=== PATIENT | female | born 1990 | race Caucasian/White ===

== ENCOUNTER 2016-12-17 06:55 | Day surgery (SDC) | payer OTHER ==
--- NOTE | 2016-12-16 16:40 | HISTORY AND PHYSICAL ---
ADMITTED: 12/17/2016 HISTORY OF PRESENT ILLNESS: The patient is a 26-year-old female with a chief complaint of painful bilateral feet. However, she states that her right foot is more symptomatic now. 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 States she has tried conservative care; it has not helped alleviate any of her pain. MEDICAL/SURGICAL HISTORY: Past medical history includes a history of anxiety and depression. Surgical history: Appendectomy, knee, gallbladder and wisdom teeth extraction. MEDICATIONS: 1. Ibuprofen as needed. ALLERGIES: 1. REPORTS AN ALLERGY TO ADDERALL. 2. CRAB. 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 Smokes a half pack per day, drinks socially. No illicit drugs. FAMILY HISTORY: Diabetes, heart disease, hypertension, arthritis. REVIEW OF SYSTEMS: A 10-point review of systems noncontributory to chief complaint. PHYSICAL EXAMINATION: GENERAL: The patient is alert and oriented x3. HEAD AND NECK: PERRLA. Normocephalic. HEART: Regular rate and rhythm. Regular S1, S2. No murmurs, gallops, or rales. LUNGS: Respirations clear to auscultation. No wheezes or rhonchi. ABDOMEN: Soft, tender, nondistended. No palpable masses. LOWER EXTREMITIES: Vascular: DP and PT pulses are palpable. Skin texture and turgor within normal limits. Subpapillary venous plexus within normal limits. NEUROLOGIC: Deep tendon reflexes and epicritic sensations are intact. Orthopedically, there is noted collapse of the medial column, valgus heel bilaterally. There is noted medial eminence of the first MTP on the right as well as a prominent lateral eminence of the right fifth MTP. Crepitus within the first and fifth MTP. There is noted contracture of the fifth digit in the frontal and sagittal planes. LAB/IMAGING: Imaging revealed significant increased intermetatarsal angle between the first and second metatarsal, right, as well as sesamoid deviation, as well as a lateral projection of the fifth metatarsal head, right. Noted contracture of the proximal and distal interphalangeal joints of the fifth digit, right. IMPRESSION: 1. Hallux abductovalgus deformity 2. Tailor bunion or bunionette of the right fifth metatarsophalangeal joint 3. Hammertoe deformity, fifth digit PLAN: The patient is scheduled for a distal metatarsal osteotomy with rigid internal fixation of the first and fifth metatarsals, as well as an arthroplasty of the fifth digit. She is aware of the convalescent period. Also of the delayed healing associated with smoking discussed. There are no contraindications to surgery at this time. Surgery is scheduled for 12/17/2016.
--- NOTE | 2016-12-16 16:40 | HISTORY AND PHYSICAL ---
ADMITTED: 12/17/2016 HISTORY OF PRESENT ILLNESS: The patient is a 26-year-old female with a chief complaint of painful bilateral feet. However, she states that her right foot is more symptomatic now. 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 States she has tried conservative care; it has not helped alleviate any of her pain. MEDICAL/SURGICAL HISTORY: Past medical history includes a history of anxiety and depression. Surgical history: Appendectomy, knee, gallbladder and wisdom teeth extraction. MEDICATIONS: 1. Ibuprofen as needed. ALLERGIES: 1. REPORTS AN ALLERGY TO ADDERALL. 2. CRAB. 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 Smokes a half pack per day, drinks socially. No illicit drugs. FAMILY HISTORY: Diabetes, heart disease, hypertension, arthritis. REVIEW OF SYSTEMS: A 10-point review of systems noncontributory to chief complaint. PHYSICAL EXAMINATION: GENERAL: The patient is alert and oriented x3. HEAD AND NECK: PERRLA. Normocephalic. HEART: Regular rate and rhythm. Regular S1, S2. No murmurs, gallops, or rales. LUNGS: Respirations clear to auscultation. No wheezes or rhonchi. ABDOMEN: Soft, tender, nondistended. No palpable masses. LOWER EXTREMITIES: Vascular: DP and PT pulses are palpable. Skin texture and turgor within normal limits. Subpapillary venous plexus within normal limits. NEUROLOGIC: Deep tendon reflexes and epicritic sensations are intact. Orthopedically, there is noted collapse of the medial column, valgus heel bilaterally. There is noted medial eminence of the first MTP on the right as well as a prominent lateral eminence of the right fifth MTP. Crepitus within the first and fifth MTP. There is noted contracture of the fifth digit in the frontal and sagittal planes. LAB/IMAGING: Imaging revealed significant increased intermetatarsal angle between the first and second metatarsal, right, as well as sesamoid deviation, as well as a lateral projection of the fifth metatarsal head, right. Noted contracture of the proximal and distal interphalangeal joints of the fifth digit, right. IMPRESSION: 1. Hallux abductovalgus deformity 2. Tailor bunion or bunionette of the right fifth metatarsophalangeal joint 3. Hammertoe deformity, fifth digit PLAN: The patient is scheduled for a distal metatarsal osteotomy with rigid internal fixation of the first and fifth metatarsals, as well as an arthroplasty of the fifth digit. She is aware of the convalescent period. Also of the delayed healing associated with smoking discussed. There are no contraindications to surgery at this time. Surgery is scheduled for 12/17/2016.
[~2016-12-17] VITALS: Ht 170.2 cm; Wt 105.1 kg
[~2016-12-17 06:55] MED LIST: IBUPROFEN600 MG PO; METHOCARBAMOL500 MG PO
[2016-12-17] MEDS ORDERED: ZOFRAN4 MG PO (12:09)
[2016-12-17] MEDS ORDERED: PERCOCET1 TA4 PO (12:09)
--- NOTE | 2016-12-17 12:10 | Provider's Discharge Care Plan ---
Problem, Goal, Plan Problem List 1. Acquired hammer toe of right foot Goals: Improve function Instructions: Follow up as directed
--- NOTE | 2016-12-17 12:10 | Provider's Discharge Care Plan ---
Problem, Goal, Plan Problem List 1. Acquired hammer toe of right foot Goals: Improve function Instructions: Follow up as directed
--- NOTE | 2016-12-17 13:09 | DIAGNOSTIC IMAGING REPORT ---
PROCEDURE: XR FOOT 3 VIEWS - RIGHT INDICATION: POST-OP- IN PACU TECHNIQUE: Three views. COMPARISON: None. FINDINGS: Bunionectomy and corrective osteotomy of the distal first metatarsal fixated with two screws. Corrective osteotomy of the distal fifth metatarsal fixated with a solitary screw. Resection of the distal aspect of the right fifth proximal phalanx. There is normal alignment of the rays. There is mild soft tissue swelling over the dorsum of the foot. IMPRESSION: 1. Bunionectomy with corrective osteotomies of the first and fifth metatarsals 2. Resection of the distal aspect of the fifth proximal phalanx
[2016-12-17] MEDS ORDERED: NORCO1 TAB PO (14:04)
--- NOTE | 2016-12-17 23:13 | OPERATIVE REPORT ---
DATE OF SURGERY: 12/17/2016 SURGEON: Jose Flores DPM PREOPERATIVE DIAGNOSES: 1. Hallux valgus deformity, right foot 2. Bunion and/or tailor's bunion, right foot 3. Hammertoe deformity, fifth digit, right foot POSTOPERATIVE DIAGNOSES: 1. Hallux valgus deformity, right foot 2. Bunion and/or tailor's bunion, right foot 3. Hammertoe deformity, fifth digit, right foot PROCEDURE PERFORMED: 1. Distal metatarsal first metatarsal with internal fixation, right foot 2. Bunionette, i.e., tailor's bunionectomy with internal fixation right fifth metatarsal 3. Arthroplasty, fifth digit, right HEMOSTASIS: Achieved by pneumatic ankle tourniquet inflated to 250 mmHg pressure. TOURNIQUET TIME: Total tourniquet time 81 minutes. MATERIALS: 3-0 and 4-0 Polysorb, 4-0 Biosyn, and two 20 mm headless compression screws and one 13 mm headless compression screw. INJECTABLES: Injected 20 mL of 0.5% bupivacaine plain. COMPLICATIONS: None. CONDITION: The patient tolerated anesthesia and procedure well, left the operating room with vital signs stable. INDICATIONS: The patient is a 26-year-old female with chief complaint of painful feet bilaterally. States that her right foot is more painful than her left, but she has prominent deformities in both. She has opted to proceed with the right foot prior to her left. There are no contraindications to surgery at this time. SURGICAL TECHNIQUE: The patient was brought to the operating room and placed on the table in a supine position. At this time, a general anesthetic was administered. A pneumatic tourniquet was then placed above the right ankle. Right lower extremity was prepped and draped in normal sterile fashion. Intraoperative pause was carried out for positive identification, proper limb, consent form verified and confirmed. Esmarch bandage was then utilized to exsanguinate the limb, tourniquet was then inflated. Attention was directed to procedure #1. Distal metatarsal right first metatarsal: A linear incision was then placed on the dorsum of the first metatarsal just from the surgical neck extending just distal to the base of the proximal phalanx of the right great toe. It was deepened by sharp and blunt dissection. A lateral release was carried out on the lateral aspect of the first MTP with identification of the deep transverse ligament and the adductor tendon. The extensor hallucis brevis was then identified laterally and then released as well. A linear incision was then made down from the capsule to bone, oriented from proximal to distal across the first MTP. Periosteum was reflected. The prominent medial eminence was resected via sagittal saw. At this time, attention was directed of the surgical neck. A distal Chevron was carried out at the apex being distal as a [id number] osteotomy with the wings at 60 degrees in orientation. Capital fragment was dislodged and impacted, then translated laterally in the transverse plane and as well as slightly plantar flexed in the sagittal plane. Utilizing standard AO techniques, the two 2.5 20 mm headless compression screws were then driven from dorsal proximal to plantar distal across the osteotomy, stably fixating it. Redundant metatarsal medially was resected. The area was copiously lavaged and flushed. Capsule and periosteum were reapproximated with 3-0 Polysorb, subcutaneous with 4-0 Polysorb and skin edges were then reapproximated in a running fashion with 4-0 Biosyn. Attention was directed to procedure #2. Distal metatarsal osteotomy, fifth metatarsal: A linear incision was then placed on the dorsum of the fifth MTP, extending at the fifth MTP just slightly proximally and veering laterally. The incision was carried down to bone. Care was taken to retract the long extensor tendon medially. A hypertrophied lateral eminence was then excised. A guidewire was then driven in the surgical neck, perpendicular to the long axis and correcting both the sagittal, transverse and frontal plane in orientation. A small sagittal saw was then was then utilized to aid in osteotomy dorsally and perpendicular or parallel to the axis of the guidewire. The sagittal saw was then utilized to create a long plantar arm osteotomy meeting the dorsal osteotomy at the guidewire. Guidewire was then removed, capital fragment was then dislodged and impacted with correction and triplane at the surgical neck of the fifth metatarsal. Using standard AO techniques, a 13 mm headless compression screw was then driven from a dorsal proximal to plantar distally, stably fixating the osteotomy. The redundant metatarsal laterally was excised and the fifth MTP was contoured to a smooth edge. The capsule and periosteum were reapproximated with 3-0 Polysorb, subcutaneous with 4-0, and skin edges were then reapproximated in a running fashion with 4-0 Biosyn. Attention was directed to procedure #3. Arthroplasty fifth digit: At this time, 2 semi-elliptical incisions were made overlying the fifth digit and oriented from proximal lateral to distal medially. The ellipsed skin was removed. Long extensor tendon was then transected at the proximal interphalangeal joint. Head of the proximal phalanx was then excised. The redundant proximal phalanx shaft was then smoothed down with the hand-held rasp. Long extensor tendon was then reapproximated in a [id number] fashion with 3-0 Polysorb. Skin edges were then reapproximated in a running fashion with 4-0 Surgipro. The surgical givens were then locally anesthetized with the aforementioned local anesthetic. A light compressive dressing was applied. The patient tolerated anesthesia and procedures well without complications, left the operating room with vital signs stable. While in recovery, written instructions dispensed, as well as the utilization of a fracture boot. Prognosis is guarded. She will be discharged home in stable condition.
[2017-01-12] MEDS ORDERED: ROBAXIN500 M1 PO (15:42)
[2017-01-12] MEDS ORDERED: NORCO1 TA1 PO (16:10)
== END 2016-12-17 15:02 | disposition home or self-care (01) ==
LOC: OR SRH 06:55 → SCU SRH 07:55 → OR SRH 10:00
PROVIDERS: Podiatrist
PROC: 0QSN04Z Reposition Right Metatarsal with Internal Fixation Device, Open Approach (ICD-10-PCS; principal; 2016-12-17 10:00)
PROC: 0QBN0ZZ Excision of Right Metatarsal, Open Approach (ICD-10-PCS; principal; 2016-12-17 10:00)
PROC: 0QBQ0ZZ Excision of Right Toe Phalanx, Open Approach (ICD-10-PCS; principal; 2016-12-17 10:00)
DX: M20.11 Hallux valgus (acquired), right foot (principal); M21.621 Bunionette of right foot; M20.41 Other hammer toe(s) (acquired), right foot

== ENCOUNTER 2017-01-14 05:32 | Day surgery (SDC) | payer OTHER ==
--- NOTE | 2017-01-13 09:37 | HISTORY AND PHYSICAL ---
ADMITTED: 01/14/2017 HISTORY OF PRESENT ILLNESS: The patient is a 26-year-old female with a chief complaint of painful bunion deformity of her left foot. We carried out surgical procedures on her left foot on 12/17/2016. She states it has gotten progressively better. Now she is going to have her right foot done. She has exhausted conservative care and is motivated to have her other foot done surgically. MEDICAL/SURGICAL HISTORY: Past medical history includes a history of anxiety and depression. Surgical history includes appendectomy, knee, gallbladder, wisdom teeth, as well as the aforementioned right foot surgery done by myself on 12/17/2016 at [facility]. MEDICATIONS: Ibuprofen as needed for pain at 600 mg every 6 hours. ALLERGIES: SHE REPORTS AN ALLERGY TO ADDERALL AND A FOOD ALLERGY TO CRAB. 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 Smokes approximately a half pack per day, drinks socially. No illicit drug use. FAMILY HISTORY: Diabetes, heart disease, hypertension, arthritis. REVIEW OF SYSTEMS: A 10-point review of systems noncontributory to chief complaint. PHYSICAL EXAMINATION: GENERAL: The patient is alert, oriented x3. HEAD AND NECK: PERRLA. Normocephalic. HEART: Regular rate and rhythm. Regular S1, S2. No murmurs, gallops, or rales. LUNGS: Respirations are clear to auscultation. No wheezes or rhonchi. ABDOMEN: Soft, tender, nondistended. No palpable masses. EXTREMITIES: Lower Extremities Vascular: DP and PT pulses are palpable at +2/4. Skin texture and turgor within normal limits. Subpapillary venous plexus within normal limits. NEUROLOGIC: Deep tendon reflexes and epicritic sensations are intact. Orthopedically, there is noted medial eminence of the first MTP with crepitus within the joint, pain with palpation of the lateral eminence of the fifth metatarsal of the left foot. There is also noted a contracture of the fifth digit in the frontal and sagittal planes. LAB/IMAGING: Imaging revealed significant increased intermetatarsal angle between the first and second metatarsal, sesamoid deviation as well as a prominent lateral projection of the fifth metatarsal head and a tailor's bunion as well as a rotated fifth digit, left foot. IMPRESSION: 1. Hallux valgus deformity. 2. Tailor's bunion or bunionette fifth metatarsal. 3. Hammertoe deformity, fifth digit. PLAN: The patient is consented for a first distal metatarsal osteotomy with rigid internal fixation, as well as a fifth metatarsal osteotomy with rigid internal fixation and an arthroplasty of the fifth digit. She is well aware of the convalescent period, as well as delayed healing associated with smoking and she vows to cut back. There are no contraindications to surgery at this time. Surgery is scheduled at [facility] on 01/14/2017.
[~2017-01-14] VITALS: Ht 167.6 cm; Wt 104.0 kg
[~2017-01-14 05:32] MED LIST changes: +NORCO1 TA1 PO; +NORCO1 TAB PO; +PERCOCET1 TA4 PO; +ROBAXIN500 M1 PO; +ZOFRAN4 MG PO
[2017-01-14] MEDS ORDERED: NORCO1 TA1 PO (09:27)
--- NOTE | 2017-01-14 09:29 | Provider's Discharge Care Plan ---
Problem, Goal, Plan Problem List 1. Hallux valgus (acquired), left foot Goals: Improve function Instructions: Follow up as directed
--- NOTE | 2017-01-14 09:29 | Provider's Discharge Care Plan ---
Problem, Goal, Plan Problem List 1. Hallux valgus (acquired), left foot Goals: Improve function Instructions: Follow up as directed
--- NOTE | 2017-01-14 10:30 | DIAGNOSTIC IMAGING REPORT ---
PROCEDURE: XR FOOT 3 VIEWS - LEFT INDICATION: POST-OP- IN PACU TECHNIQUE: Three views. COMPARISON: Right foot 12/17/2016 FINDINGS: Bunionectomy and corrective osteotomy of the distal first metatarsal fixated with two screws. Corrective osteotomy of the distal fifth metatarsal fixated with a solitary screw. Resection of the distal aspect of the left fifth proximal phalanx. There is normal alignment of the rays. There is mild soft tissue swelling over the dorsum of the foot. IMPRESSION: 1. Bunionectomy with corrective osteotomies of the first and fifth metatarsals 2. Resection of the distal aspect of the fifth proximal phalanx
--- NOTE | 2017-01-14 10:35 | OPERATIVE REPORT ---
DATE OF SURGERY: 01/14/2017 SURGEON: Jose Flores DPM PREOPERATIVE DIAGNOSES: 1. Hallux valgus deformity, left first metatarsophalangeal joint 2. Tailor's bunion, fifth metatarsophalangeal joint 3. Hammertoe deformity, fifth digit, left POSTOPERATIVE DIAGNOSES: 1. Hallux valgus deformity, left first metatarsophalangeal joint 2. Tailor's bunion, fifth metatarsophalangeal joint 3. Hammertoe deformity, fifth digit, left PROCEDURE PERFORMED: 1. First distal metatarsal osteotomy with rigid internal fixation 2. Bunionette with fifth metatarsal distal metatarsal osteotomy with rigid internal fixation 3. Arthroplasty, fifth digit, left foot ANESTHESIA: General. HEMOSTASIS: Achieved by pneumatic ankle tourniquet inflated to 250 mmHg pressure. TOURNIQUET TIME: Total tourniquet time 74 minutes. MATERIALS: Used 3-0 and 4-0 Polysorb, 4-0 Surgipro and 4-0 Biosyn. One 13 mm headless 2.5 compression screw by Arthrex and two 2.5 x 22 mm headless compression screws. INJECTABLES: 20 mL of 0.5% bupivacaine plain. COMPLICATIONS: None. CONDITION: The patient tolerated anesthesia and procedure well. INDICATIONS: The patient is a 26-year-old female who presents with a painful bunion, tailor's and a hammertoe deformity of her left foot. She presented 1 month ago and had her right foot corrected by myself. We have had no complications. She has elected to proceed with the contralateral, i.e., left foot surgery today. SURGICAL TECHNIQUE: The patient was brought to the operating room and placed on the table in the supine position. At this time, general anesthetic was administered. A pneumatic tourniquet was then placed above the left ankle. The left lower extremity was then prepped and draped in the normal sterile fashion. The intraoperative pause was carried out for positive identification, proper limb, and consent form verified and confirmed. An Esmarch bandage was then utilized to exsanguinate the limb. The tourniquet was then inflated. Attention was then directed to procedure #1. PROCEDURE 1: First metatarsal, distal metatarsal osteotomy, left foot. A linear incision was made overlying the first MTP extending from the metatarsal surgical neck extending just across the MTP joint. It was deepened by sharp and blunt dissection. The pericapsular incision made down to bone. Capsule periosteum sharply dissected off the dorsal and medial aspect of the first metatarsal. The medial eminence of the first metatarsal head was resected via a sagittal saw. An osteotomy was then carried out at the surgical neck with the apex being distal and wings at 60 degrees of orientation through and through. The capital fragment was dislodged and then translated both in the sagittal and transverse plane. Using standard AO techniques, the capital fragment was then permanently fixated with two 2.5 x 22 mm screws driven from dorsal proximal to plantar distal. Redundant metatarsal medially was excised. First MTP was contoured to a smooth edge. Capsule and periosteum were reapproximated with 3-0 Polysorb, subcutaneous with 4-0 and skin edges reapproximated in running fashion with 4-0 Surgipro. Attention was then directed to procedure #2. Procedure #2: Bunionette, i.e., distal fifth metatarsal osteotomy, left foot. At this time, a dorsal linear incision was made on the dorsal lateral aspect of the fifth metatarsal, extending from the base of the proximal phalanx, then distal, then proximal to the surgical neck. It was deepened by sharp and blunt dissection. One pericapsular incision made down to the bone. Capsule was sharply dissected. The lateral limits of the fifth metatarsal head were resected via a sagittal saw. A guidewire was then driven perpendicular to the long axis allowing triplanar correction. An osteotomy dorsally was parallel to the guide pin and then a plantar osteotomy was carried out, going from distal to proximal and slightly oriented plantarly. The capital fragment was then dislodged and impacted and correcting the triplane deformity. It was then fixated using standard AO techniques with a 13 mm 2.5 headless compression screw. The area was contoured to a smooth edge. The capsule and periosteum were reapproximated with 3-0 Polysorb, subcutaneous with 4-0 and skin edges reapproximated in running fashion with 4-0 Biosyn. Attention was then directed to procedure #3. Procedure #3: Arthroplasty fifth digit. At this time, 2 semi-elliptical incisions were made on the fifth toe extending from the proximal lateral towards plantar medial. An ellipse of skin was removed. Skin hooks were then used to retract the skin. The long extensor tendon was transected at the proximal interphalangeal joint. The head of the proximal phalanx was excised via sagittal saw. Contoured to a smooth edge. The area was flushed. The long extensor tendon was reapproximated in a [id number] fashion with 3-0 Polysorb. The skin edges were then reapproximated with the toe derotated and oriented correctly in the frontal plane and sewn in a running fashion with 4-0 Surgipro. The area was then locally anesthetized with the aforementioned local anesthetic. Tourniquet was released with reactive hyperemia and good digital perfusion. Total tourniquet time was 74 minutes. There were no complications. The patient tolerated anesthesia and procedure well with return of vital signs stable. While in recovery, written instructions for weightbearing with aid of a fracture boot. Prognosis is guarded. She will be discharged home in stable condition.
== END 2017-01-14 13:10 | disposition home or self-care (01) ==
LOC: OR SRH 05:32 → SCU SRH 06:19 → OR SRH 07:30
PROVIDERS: Podiatrist
PROC: 0QSP04Z Reposition Left Metatarsal with Internal Fixation Device, Open Approach (ICD-10-PCS; principal; 2017-01-14 07:30)
PROC: 0QBP0ZZ Excision of Left Metatarsal, Open Approach (ICD-10-PCS; principal; 2017-01-14 07:30)
PROC: 0QBR0ZZ Excision of Left Toe Phalanx, Open Approach (ICD-10-PCS; principal; 2017-01-14 07:30)
DX: M20.12 Hallux valgus (acquired), left foot (principal); M20.42 Other hammer toe(s) (acquired), left foot; M21.622 Bunionette of left foot; Z72.0 Tobacco use